=== PATIENT | female | born 1955 | race Caucasian/White ===

== ENCOUNTER 2020-09-16 01:24 | Outpatient (CLI) | payer MEDICARE, BC, SELFPAY ==
--- NOTE | 2020-09-16 13:26 | DI.MAMMO_ITS ---
EXAM: MG MAMMO SCREENING CLINICAL HISTORY: screening,Z12.39 TECHNIQUE: Bilateral full field digital CC and MLO mammographic images were obtained with 3D tomosyn thesis and utilizing computer aided detection (CAD). COMPARISON: Available for comparison. FINDINGS: Masses/Architectural Distortion: There multiple bilateral well-circumscribed nodules in the breasts. No suspicious masses or areas of architectural distortion. Microcalcifications: No suspicious pleomorphic-type are seen. Skin Thickening/Nipple Retraction: None. IMPRESSION: 1. No significant interval change with no specific features of malignancy noted. 2. Unless there is more urgent need, screening mammography is recommended, as per [employer] guidelines. BI-RADS Category 2 - Benign Findings Breast Density - Category C - Heterogeneously dense Breast density category C or D implies that the patient has dense breast tissue. Dense breast tissue is very common and is not abnormal but dense breast tissue can make it harder to find cancer on a ma mmogram. Also, dense breast tissue may increase their breast cancer risk. This information about the result of the mammogram report was provided to the patient to raise their awareness. Use this report when you speak with the patient about their risks for breast cancer, which includes their family hist ory. At that time, you may recommend for more screening tests (Ultrasound or MRI) as they might be us eful based on their risk. A negative radiographic report should not delay biopsy if a dominant or clinically suspicious mass is present. Up to ten percent of cancers are not identified on mammography. A negative report may reinforce clinical impression. Adenosis and dense breasts may obscure an underlying neoplasm. False positive reports average 6 to 10%. Patient will receive a letter notifying them of these results.
== END 2020-09-16 01:44 ==
PROVIDERS: PCP Nurse Practitioner Adult Health; Visit Provider Nurse Practitioner Adult Health
DX: Z12.31 Encounter for screening mammogram for malignant neoplasm of breast (principal)
CPT/HCPCS: 77063; 77067

== ENCOUNTER 2022-05-16 10:20 | Outpatient (REF) | payer MEDICARE, BC, SELFPAY ==
--- OUTSIDE RECORDS SUMMARY | 2022-05-16 11:09 | XMS_ITS | Encounter Summary ---
:1955 Author Organization [facility] Address [address] [place] [address] Care Team Providers Name Role Phone Swathi Abraham MD Primary Care Provider Encounter Details Date Type Department Care Team Description 04/10/2009 Orders Only [facility] Jones Grewal MD Laboratory Services - [address] [place] [address] [address] [facility] [place] [address] [phone] Social History Tobacco Use Types Packs/Day Years Used Date Never Assessed Sex Assigned at Date Recorded Not on file documented as of this encounter Plan of Treatment Not on filedocumented as of this encounter Procedures Procedure Name Priority Date/Time Associated Diagnosis Comme [facility] SURGICAL PATHOLOGY Routine 04/10/2009 0:00 EDT Re sults for this procedure are i n the results section. documented in this encounter Results SURGICAL PATHOLOGY (04/10/2009 0:00 EDT) Pathologist [facility] SURGICAL PATHOLOGY REPORT ? [facility] Report: Reports generated via electr Taamkru interface contain original data; ? LAB however they are lacking the format of the original report. ? Caution should be taken when reading/interpreting unformatted reports. ? Name: ? REALI, REBECA ? Accession #: ? [id number] ? : ? 1955 (Age: 53) ??F ? Collec t Date: ? 04/10/2009 ? Location: ? [facility] ? R eceive Date: ? 04/11/2009 ? Provider: JONES D ROSALEE MD ? Copy to: SHANON L SHAH N P ? Final Pathologic Diagnosis: ? A. ?Endocervix, polypectomy: ? 1. ?High grade squamous intraepithelial lesion (MERI II) arising in an ?? endocervical polyp. ? See comment. ? B. ?Endocervix, curettage: ? 1. ?Strips of s quamous and endocervical mucosa with reactive changes and chronic cervicitis. ? 2. ? No dysplasia identi fied. ? Comment: ? Sections of (A) show an endocervical polyp with foci of moderate squamous ?? dysplasia. ??Immunostaining of (A) for p16 (E6H4TM, [facility]) shows ? full-thickness staining in t he dysplastic areas, which is accompanying by an ? increase in MIB-1(Ki-67) (Ra bbit Monoclonal (SP6), [facility]) activity. ? Positive and negative contro ls stain appropriately. ??Arts And Crafts Teacher sections of this case have been reviewed at intradepartmental consultation conference. ??(Dr. Ingram) ? NOTE: ??One or more of the reagents used in immunohistochemical testing in this case may not have been cleared or approved by the U.S. Food and Drug ? Administration (FDA). ??The FDA has determined that such clearance or approval is not necessary. ??These tests are used for clinical purposes. ??They should not be regarded as investigational or for research. ??These reagents' ??performance ? characteristics have been de termined by [facility]. ??This ? laboratory is certified unde r the Clinical Laboratory Improvement Amendments of 1988 (CLIA-88) as qualified to perform high complexity clinical laboratory ? testing. ? Document reviewed and electr onically signed by: ? WATSON INGRAM MD ? Report ??Date: 04/17/2009 14 :39 ? By the signature above, the attending physician certifies that he/she has ? personally conducted a gross and/or microscopic examination of the described ? specimens and rendered or co nfirmed the above diagnosis. ? Specimen(s) Received: ? A. ?Endocervica l polyp ? B. ? Endocervical curett ings ? Clinical History: ? ASCUS, positive HPV 7 /16/09 ? Gross Description: ? Received in formalin labelled Rebeca Bogsg and #1 endocx polyp is a ?? turner polypoid piece of tissue which measures 1.2 x 0.8 x 0.4 cm as well as a 1.5 x 1.0 x 0.2 cm aggregate of mucinous material. ??The polyp is bisected and the ?? specimen is submitted entire ly as (A). ? Received in formalin christ d Rebeca Boggs and #2 endocx is a 0.75 cc ? aggregate of hemorrhagic muc inous material. ??The specimen is submitted entirely as (B). ??(Car Ordoñez)/aditi ? End of Report ? Specimen Performing Organization Address City/State/ZIP Code Phon e Number [facility] [address] [place] [address] SERVICES [facility] [address] [place] [address] documented in this encounter Visit Diagnoses Not on filedocumented in this encounter Care Teams Legal Referee Relationship Specialty Start Date End Date Swathi Abraham MD PCP - General 03/21/09 05/14/[address] [place] [phone] (work) documented as of this encounter
--- OUTSIDE RECORDS SUMMARY | 2022-05-16 11:09 | XMS_ITS | Encounter Summary ---
:[address] [facility] Address [address] [place] [address] Care Team Providers Name Role Phone Swathi Abraham MD Primary Care Provider Encounter Details Date Type Department Care Team Description 03/09/2002 Results Only [facility] Vitale, Chr istopher, conversion DO [address] [facility] [address] [facility] AHMET RILEY [address] [place] [address] [place] [address] (Wo rk) Social History Tobacco Use Types Packs/Day Years Used Date Never Assessed Sex Assigned at Date Recorded Not on file documented as of this encounter Plan of Treatment Not on filedocumented as of this encounter Procedures Procedure Name Priority Date/Time Associated Diagnosis Comme nts SURGICAL PATHOLOGY Routine 03/09/2002 0:00 EDT Re sults for this procedure are i n the results section. documented in this encounter Results SURGICAL PATHOLOGY (03/09/2002 0:00 EDT) Pathology Report: SURGICAL PATHOLOGY REPORT [facility] Reports generated via electronic interface contain pablo ginal data; LAB however they are lacking the format of the original re port. Caution should be taken when reading/interpreting unfo rmatted reports. Name: ? REBECA HARKINS ? Accession #: ? [id number] ? : ? 1955 (Age: 46) ??F ? Collect Date: ? 03/09/2002 ? Location: ? [facility] ? Receive Date: ? 002 ? Provider: HEIDI VITALE DO Copy to: KARIE SHAH FIRE PROTECTION EQUIPMENT TECHNICIAN ? Final Pathologic Diagnosis: ? Colon, 30.0 cm, polyp, polypectomy: - ??Fragments of tubular adenoma. Document reviewed and electronically signed by: Juwan Strauss MD Report ??Date: 03/14/2002 17:00 By the signature above, the attending physician certif ies that he/she has personally conducted a gross and/or microscopic examin ation of the described specimens and rendered or confirmed the above diagnosi s. Specimen(s) Received: ? Polyp 30 cm Clinical History: ? Rectal bleeding Gross Description: ? Received in Hollande' s fixative labelled Reali and polyp 30 cm are three polypoid pieces of sof t turner tissue which vary in size from 0.3 x 0.2 x 0.1 cm to 0.5 x 0.3 x 0.3 cm. ??The specimen is subm itted intact in one cassette. (Car Nur)/aditi End of Report Specimen Performing Organization Address City/State/ZIP Code Phon e Number [facility] [address] [place] [address] SERVICES [facility] [address] [place] [address] documented in this encounter Visit Diagnoses Not on filedocumented in this encounter Care Teams Beam Dyer Operator Relationship Specialty Start Date End Date Swathi Abraham MD PCP - General 03/21/09 05/14/[address] [place] [phone] documented as of this encounter
--- OUTSIDE RECORDS SUMMARY | 2022-05-16 11:09 | XMS_ITS | Encounter Summary ---
:1955 Author Organization [facility] Address [address] [place] [address] Care Team Providers Name Role Phone Estephania Merino MATERIAL STRESS TESTER Primary Care Provider Encounter Details Date Type Department Care Team Description 08/31/2017 Hospital Encounter [facility]- Susana Unknown, Provider, [facility] [address] [facility] [phone] [place] [address] (Work) [phone] Social History Tobacco Use Types Packs/Day Years Used Date Never Assessed Sex Assigned at Date Recorded Not on file documented as of this encounter Discharge Disposition Disposition Code Departure Means Destination Home or Self Alf documented in this encounter Plan of Treatment Not on filedocumented as of this encounter Visit Diagnoses Not on filedocumented in this encounter Care Teams Design Engineering Intern Relationship Specialty Start Date End Date Estephania Merino, MATERIAL STRESS TESTER PCP - General 05/15/[address] [place] [phone] documented as of this encounter
--- OUTSIDE RECORDS SUMMARY | 2022-05-16 11:09 | XMS_ITS | Encounter Summary ---
:1955 Author Organization [facility] Address [address] [place] [address] Care Team Providers Name Role Phone Estephania Merino BUSINESS CONSULTANT Primary Care Provider Encounter Details Date Type Department Care Team Description 08/31/2017 Results Only [facility] Deyvi Vitale, DO [address] [facility] AHMET [address] [place] [address] (Wo rk) Social History Tobacco Use Types Packs/Day Years Used Date Never Assessed Sex Assigned at Date Recorded Not on file documented as of this encounter Plan of Treatment Not on filedocumented as of this encounter Procedures Procedure Name Priority Date/Time Associated Diagnosis Comme [facility] SURGICAL PATHOLOGY Routine 08/31/2017 17:37 Resul ts for this EST procedure are i n the results section. documented in this encounter Results SURGICAL PATHOLOGY (08/31/2017 17:37 EST) Pathology Report: SURGICAL PATHOLOGY REPORT [facility] Reports generated via electronic interface contain pablo ginal data; LABORATORY however they are lacking the format of the original re port. SERVICES Caution should be taken when reading/interpreting unfo rmatted reports. Name: ? MAGDALENA RENNER ? Accession #: ? [id number] ? : ? 1955 (Age: [age]) ??F ? Collect Date: ? 08/31/2017 ? Location: ? [facility] ? Receive Date: ? 8 ? Provider: DEYVI VITALE DO Copy to: NATHALY RODRIGUEZ EARLY INTERVENTION SCHOOL PSYCHOLOGIST ? Final Pathologic Diagnosis: A. COLON, SIGMOID, POLYP, BIOPSY: - ??Fragment of hyperplastic polyp. B. RECTUM, POLYP, BIOPSY: - ??Fragment of hyperplastic polyp with lymphoid aggre gate. Document reviewed and electronically signed by: PACHECO BERNABE MD Report ??Date: 09/01/2017 17:00 By the signature above, the attending physician certif ies that he/she has personally conducted a gross and/or microscopic examin ation of the described specimens and rendered or confirmed the above diagnosi s. Specimen(s) Received: A. ??Sigmoid polyp B. ??Rectal polyp Clinical History: Hx of colon polyps Gross Description: A. ?Received in formalin labelled with proper p atient identification (initials W, S) and sigmoid colon polyp is a single white tissue fragment (0.8 x 0.2 x 0.1 cm). Submitted intact in block A1. B. ?Received in formalin labelled with proper p atient identification (initials W, S) and rectal polyp is a single pink-turner tissue fragment (0.4 x 0.3 x 0.1 cm). Submitted intact in block B1. JESS Coyle (ASCP) 09/01/2017 8:07 AM End of Report Specimen Performing Organization Address City/State/ZIP Code Phon e Number [facility] [address] [place] [address] SERVICES documented in this encounter Visit Diagnoses Not on filedocumented in this encounter Care Teams Switchboard Receptionist Relationship Specialty Start Date End Date Estephania Merino NP PCP - General 05/15/[address] [facility] [address] [place] [phone] documented as of this encounter
--- OUTSIDE RECORDS SUMMARY | 2022-05-16 11:09 | XMS_ITS | Encounter Summary ---
:1955 Author Organization [facility] Address [address] [place] [address] Care Team Providers Name Role Phone Swathi Abraham MD Primary Care Provider Encounter Details Date Type Department Care Team Description 08/19/2009 Orders Only [facility] Kellie Roque MD Laboratory Services - [address] [place] [address] [address] [place] [address] [phone] Social History Tobacco Use Types Packs/Day Years Used Date Never Assessed Sex Assigned at Date Recorded Not on file documented as of this encounter Plan of Treatment Not on filedocumented as of this encounter Procedures Procedure Name Priority Date/Time Associated Diagnosis Comme nts CYTOPATHOLOGY Routine 08/19/2009 0:00 EST Results for this procedure are i n the results section . documented in this encounter Results CYTOPATHOLOGY (08/19/2009 0:00 EST) Pathology Report: CYTOPATHOLOGY REPORT ? [facility] ? LAB Reports generated via electr onic interface contain original data; ? however they are lacking the format of the original report. ? Caution should be taken when reading/interpreting unformatted reports. ? Name: ? REBECA HARKINS ? Accession #: ? [id number] ? : ? 1955 (Age: 54) ??F ?Collect Date: ? 08/19/2009 ? Location: ? [facility] ? Receive Date: ? 08/21/2009 ? Provider: ?KELLIE P NEMO TER MD ? Copy to: ?SHANON L RO BINSON WATER ATTENDANT ? Specimen/Source: ? Pap Test, Vagina/Cervix/Endocervix, ThinPrep Imaging ? System with manual evaluatio n ? Last Menstrual Period: ? 2 Years ? Previous Gynecologic Patholo gy: ? ASC-US: With BV (Elsewhere) ? HSIL: 8/09 arising from an e ndocx polyp ? HPV: 7/09 ? Treatment History: ? Colposcopy: 9/09 Negative ? Colposcopy: 9/09 sq. metapla adwoa ? Other: ? 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 SPECIMEN ADEQUACY ? Satisfactory for Eval uation ? - transformation zone compon ent present ? GENERAL CATEGORIZATION ? Negative for Intraepi thelial Lesion or Malignancy ? Document reviewed and electr onically signed by: ? Zelda Samuels, CT( CP)(IAC) ? Report Date: ??12/29/ 2009 14:07 ? End of Report ? Specimen Performing Organization Address City/State/ZIP Code Phon e Number [facility] [address] [place] [address] SERVICES [facility] [address] [place] [address] documented in this encounter Visit Diagnoses Not on filedocumented in this encounter Care Teams Collision Technician Relationship Specialty Start Date End Date Swathi Abraham MD PCP - General 03/21/09 05/14/[address] [place] [phone] documented as of this encounter
--- OUTSIDE RECORDS SUMMARY | 2022-05-16 11:09 | XMS_ITS | Encounter Summary ---
:1955 Author Organization [facility] Address [address] [place] [address] Care Team Providers Name Role Phone Unavailable Primary Care Provider Unavailable Encounter Details Date Type Department Care Team Description 03/14/2009 Orders Only [facility] Yanna Merino, BECKY Laboratory Services - [address] [address] [place] [address] [phone] Social History Tobacco Use Types Packs/Day Years Used Date Never Assessed Sex Assigned at Date Recorded Not on file documented as of this encounter Plan of Treatment Not on filedocumented as of this encounter Procedures Procedure Name Priority Date/Time Associated Comments Diagnosis HPV DETECTION, HIGH Routine 03/14/2009 10:16 Resu lts for this RISK TYPES EDT procedure are i n the results section. CYTOPATHOLOGY Routine 03/14/2009 0:00 Results for this EDT procedure are i n the results section. documented in this encounter Results HUMAN PAPILLOMA VIRUS DNA TEST (03/14/2009 10:16 EDT) Specimen Description Cervix, ThinPrep [facility] vial LAB Result Positive for one or more of HPV types 16,18,31,33,35,39,45,51,52,56,58,59, or 68. These [facility] Camille CLAYTONEN high/intermediate risk HPV t ypes are associated with dysplasia and some cervical cancers. LAB Report Status Final [facility] 03/27/2009 LAB Specimen Performing Organization Address City/State/ZIP Code Phon e Number [facility] [address] [place] [address] SERVICES [facility] [address] [place] [address] CYTOPATHOLOGY (03/14/2009 0:00 EDT) Pathology Report: CYTOPATHOLOGY REPORT ? [facility] ? LAB Reports generated via Nistica interface contain original data; ? however they are lacking the format of the original report. ? Caution should be taken when reading/interpreting unformatted reports. ? Name: ? REBECA HARKINS ? Accession #: ? [id number] ? : ? 1955 (Age: 53) ??F ?Collect Date: ? 03/14/2009 ? Location: ? [facility] ? Receive Date: ? 03/15/2009 ? Provider: ?SHANON L R OBINSON LICENSED FUNERAL DIRECTOR AND EMBALMER ? Copy to: ? Specimen/Source: ? Pap Test, Cervix/Endocervix, ThinPrep Imaging System ? with manual evaluation ? Last Menstrual Period: ? 02/01/07 ? Other: ? Additional clinical informat ion: Cervical polyp ? HPVA - HPV testing requested if ASC-US on the current ThinPrep Pap test. ? SPECIMEN ADEQUACY ? Satisfactory for Eval uation ? - transformation zone compon ent present ? GENERAL CATEGORIZATION ? Epithelial Cell Abnor mality ? INTERPRETATION ? Squamous Cell Abnorma lity - Atypical squamous cells, undetermined ? significance (ASC-US). ? Shift in oj present sugge stive of bacterial vaginosis. ? EDUCATIONAL NOTES/RECOMMENDA TIONS ? [facility] recommends follo wing the 2005 Consensus Guidelines for the Management of Women with Abnormal Cervi malick Cancer Screening Tests (JLGTD, ? 2007;11(4):201-222). ??Conse nsus guidelines are available online at ? www.ASCCP.org. ? Document reviewed and electr onically signed by: ? KOBY GOMEZ MD MBB CH ? Report Date: ??07/22/ 2009 18:21 ? End of Report ? Specimen Performing Organization Address City/State/ZIP Code Phon e Number [facility] [address] [place] [address] SERVICES [facility] [address] [place] [address] documented in this encounter Visit Diagnoses Not on filedocumented in this encounter
--- OUTSIDE RECORDS SUMMARY | 2022-05-16 11:09 | XMS_ITS | Encounter Summary ---
:1955 Author Organization [facility] Address [address] [place] [address] Care Team Providers Name Role Phone Swathi Abraham MD Primary Care Provider Encounter Details Date Type Department Care Team Description 05/09/2010 Results Only [facility] Yanna Shah, MALARIOLOGIST Laboratory Services - [address] [place] [address] [place] [address] [place] [address] [phone] Social History Tobacco Use Types Packs/Day Years Used Date Never Assessed Sex Assigned at Date Recorded Not on file documented as of this encounter Plan of Treatment Not on filedocumented as of this encounter Procedures Procedure Name Priority Date/Time Associated Diagnosis Comme nts CYTOPATHOLOGY Routine 05/09/2010 0:00 EDT Results for this procedure are i n the results section . documented in this encounter Results CYTOPATHOLOGY (05/09/2010 0:00 EDT) Pathology Report: CYTOPATHOLOGY REPORT ? [facility] ? LAB Reports generated via electr onic interface contain original data; ? however they are lacking the format of the original report. ? Caution should be taken when reading/interpreting unformatted reports. ? Name: ? REBECA HARKINS ? Accession #: ? [id number] ? : ? 1955 (Age: 55) ??F ?Collect Date: ? 05/09/2010 ? Location: ? [facility] ? R eceive Date: ? 05/12/2010 ? Provider: SHANON L SHAH MALARIOLOGIST ? Copy to: ? Final Report ? SPECIMEN ADEQUACY ? Satisfactory for Eval uation ? - transformation zone compon ent present ? GENERAL CATEGORIZATION ? Negative for Intraepi thelial Lesion or Malignancy ? INTERPRETATION ? Reactive cellular juan nges associated with inflammation present (includes ?? repair). ? Last Menstural Period: 2008 ? Previous Gynecologic Patholo gy: ASC-US: H/O ? Other: HPVDX - HPV testing r equested regardless of diagnosis on current ThinPrep Pap test. ? Specimen/Source: ??Pap Test, Cervix, ThinPrep Imaging System with manual ? evaluation ? Document reviewed and electr onically signed by: ? GUMARO L CIOLINO MD ? Report ??Date: 09/16/ 2010 07:54 ? HPV with Pap Test ? Date Ordered: ? 0 05/14/2010 ? Status: ?? Signed Out ?Date Complete: ? 05/16/2010 ? By: ??User Misys ? Date Reported: ? 05/16/2010 ? Interpretation ? RESULT: Negative for HPV typ es 16, 18, 31, 33, 35, 39, 45, 51, ??with ? dysplasia and some cervical cancers. ? Comments ? Document reviewed and electr onically signed by: ? User Misys ? Report date: 05/16/20 ? By the signature above, the attending physician certifies that he/she has ? personally conducted a gross and/or microscopic examination of the described ? specimens and rendered or co nfirmed the above diagnosis. ? End of Report ? Specimen Performing Organization Address City/State/[facility] Code Phon e Number [facility] [address] [place] [address] SERVICES [facility] [address] [place] [address] documented in this encounter Visit Diagnoses Not on filedocumented in this encounter Care Teams Child Protective Services Social Worker Relationship Specialty Start Date End Date Swathi Abraham MD PCP - General 03/21/09 05/14/[address] [place] [phone] documented as of this encounter
--- OUTSIDE RECORDS SUMMARY | 2022-05-16 11:09 | XMS_ITS | Encounter Summary ---
:1955 Author Organization [facility] Address [address] [place] [address] Care Team Providers Name Role Phone Estephania Shah DECK CADET Primary Care Provider Encounter Details Date Type Department Care Team Description 11/13/2014 Results Only [facility] Yanna Shah, DECK CADET Laboratory Services - [address] [place], [place] [address] [place] [phone] [place] [address] [phone] Social History Tobacco Use Types Packs/Day Years Used Date Never Assessed Sex Assigned at Date Recorded Not on file documented as of this encounter Plan of Treatment Not on filedocumented as of this encounter Procedures Procedure Name Priority Date/Time Associated Diagnosis Comme nts PAP TEST- RESULT Routine 11/13/2014 0:00 EDT Resu lts for this ONLY procedure are i n the results section. documented in this encounter Results PAP TEST- RESULT ONLY (11/13/2014 0:00 EDT) Pathology Report: CYTOPATHOLOGY REPORT [facility] Reports generated via electronic interface contain pablo ginal data; SERVICES however they are lacking the format of the original re port. Caution should be taken when reading/interpreting unfo rmatted reports. Name: ? REBECA HARKINS ? Accession #: ? [id number] ? : ? 1955 (Age: 59) ??F ?Collect Da te: ? 11/13/2014 ? Location: ? [facility] ? Receive Date: ? 015 ? Provider: ESTEPHANIA SHAH DECK CADET Copy to: ? Final Report SPECIMEN ADEQUACY ? Satisfactory for Evaluation - transformation zone component present GENERAL CATEGORIZATION ? Negative for Intraepithelial Lesion or Malignan cy ?? Last Menstrual Period: 2007 Specimen/Source: ??Pap Test, Endocervix, ThinPrep Imag ing System with manual evaluation Document reviewed and electronically signed by: ? NEELA Salas(ASCP) ? Report ??Date: 11/19/2014 12:54 HPV with Pap Test ? Date Ordered: ? 11/19/2014 ? Status: ?? Signed Out ?Date Complete: ? 11/21/2014 ? By: ??S ystem Interface ? Date Reported: ? 11/21/2014 ? Interpretation RESULT: Negative for HPV. No E6 or E7 mRNA is detected from HPV types 16,18,31,3 3,35, 39,45,51,52,56,58,59,66, and 68 by building cleaning supervisor media stephie amplification. Comments Document reviewed and electronically signed by: ? System Interface ? Report date: 11/21/2014 By the signature above, the attending physician certif ies that he/she has personally conducted a gross and/or microscopic examin ation of the described specimens and rendered or confirmed the above diagnosi s. End of Report Specimen Performing Organization Address City/State/ZIP Code Phon e Number [facility] [address] [place] [phone] SERVICES documented in this encounter Visit Diagnoses Not on filedocumented in this encounter Care Teams Single Stayer Operator Relationship Specialty Start Date End Date Estephania Shah, DECK CADET PCP - General 05/15/[address] [place] [phone] documented as of this encounter
--- OUTSIDE RECORDS SUMMARY | 2022-05-16 11:09 | XMS_ITS | Encounter Summary ---
:1955 Author Organization [facility] Address [address] [place] [address] Care Team Providers Name Role Phone Swathi Abraham MD Primary Care Provider Encounter Details Date Type Department Care Team Description 01/03/2004 Results Only [facility] Martin son, Estephania Dewitt, CINDER BLOCK MAKER conversion [address] [place] [phone] (Wo rk) Social History Tobacco Use Types Packs/Day Years Used Date Never Assessed Sex Assigned at Date Recorded Not on file documented as of this encounter Plan of Treatment Not on filedocumented as of this encounter Procedures Procedure Name Priority Date/Time Associated Diagnosis Comme nts CYTOPATHOLOGY Routine 01/03/2004 0:00 EDT Results for this procedure are i n the results section . documented in this encounter Results CYTOPATHOLOGY (01/03/2004 0:00 EDT) Pathology Report: CYTOPATHOLOGY REPORT [facility] Reports generated via electronic interface contain pablo ginal data; however they are lacking the format of the original re port. Caution should be taken when reading/interpreting unfo rmatted reports. Name: ? REBECA HARKINS ? Accession #: ? [id number] : ? 1955 (Age: 48) ??F ?Collect Date: ? 05/0 01/2004 Location: ? [facility] ? Receive Date : ? 01/08/2004 Provider: ?ESTEPHANIA SHAH CINDER BLOCK MAKER Copy to: ? Specimen/Source: ?ThinPrep Pap Test, Cervix/ Endocervix Last Menstrual Period: ? Approx. 1.5 mo ago Other: ? Additional clinical information: Cervical polyp ? SPECIMEN ADEQUACY ? Satisfactory for Evaluation - transformation zone component present GENERAL CATEGORIZATION ? Negative for Intraepithelial Lesion or Malignan cy ? Document reviewed and electronically signed by: ? NEELA Fraser(ASCP) ? Report Date: ??01/11/2004 13:36 End of Report Specimen Performing Organization Address City/State/ZIP Code Phon e Number [facility] [address] [place] [address] SERVICES [facility] [address] [place] [address] documented in this encounter Visit Diagnoses Not on filedocumented in this encounter Care Teams Treasury Analyst Relationship Specialty Start Date End Date Swathi Abraham MD PCP - General 03/21/09 05/14/[address] [place] [phone] documented as of this encounter
--- OUTSIDE RECORDS SUMMARY | 2022-05-16 11:09 | XMS_ITS | Encounter Summary ---
:1955 Author Organization [facility] Address [address] [place] [address] Care Team Providers Name Role Phone Estephania Merino WHIZZER Primary Care Provider Encounter Details Date Type Department Care Team Description 07/15/2012 Results Only [facility] Deyvi Vitale , Laboratory Services - [address] [place] [address] [place] [address] [phone] Social History Tobacco Use Types Packs/Day Years Used Date Never Assessed Sex Assigned at Date Recorded Not on file documented as of this encounter Plan of Treatment Not on filedocumented as of this encounter Procedures Procedure Name Priority Date/Time Associated Diagnosis Comme [facility] SURGICAL PATHOLOGY Routine 07/15/2012 0:00 EST Re sults for this procedure are i n the results section. documented in this encounter Results SURGICAL PATHOLOGY (07/15/2012 0:00 EST) Pathology Report: SURGICAL PATHOLOGY REPORT [facility] Reports generated via electronic interface contain pablo ginal data; LAB however they are lacking the format of the original re port. Caution should be taken when reading/interpreting unfo rmatted reports. Name: ? REBECA HARKINS ? Accession #: ? [id number] ? : ? 1955 (Age: 57) ??F ? Collect Date: ? 07/15/2012 ? Location: ? [facility] ? Receive Date: ? 012 ? Provider: DEYVI VITALE DO Copy to: NATHALY RODRIGUEZ INORGANIC CHEMISTRY TEACHER ? Final Pathologic Diagnosis: ? Colon, 30 cm, polyp, biopsies: - Tubular adenoma (three pieces); no high grade dyspla adwoa. Document reviewed and electronically signed by: Nicanor Martin MD Report ??Date: 07/19/2012 17:20 By the signature above, the attending physician certif ies that he/she has personally conducted a gross and/or microscopic examin ation of the described specimens and rendered or confirmed the above diagnosi s. Specimen(s) Received: ? Polyp 30 cm Clinical History: ? FHx of colon polyps Gross Description: ? Received in formalin labelled Ambrose, Yadira ryl and #1-polyp 30 cm are three turner-pink soft tissue fragments ranging fro m 0.1 x 0.1 x 0.1 cm to 0.5 x 0.3 x 0.2 cm. ??The specimen is entirely submitted in one cassette. ??(Dr. Frias)/[facility] End of Report Specimen Performing Organization Address City/State/ZIP Code Phon e Number [facility] [address] [place] [address] SERVICES [facility] [address] [place] [address] documented in this encounter Visit Diagnoses Not on filedocumented in this encounter Care Teams Certified Solid Waste Facility Operator Relationship Specialty Start Date End Date Estephania Merino NP PCP - General 05/15/[address] [place] [phone] documented as of this encounter
--- OUTSIDE RECORDS SUMMARY | 2022-05-16 11:09 | XMS_ITS | Encounter Summary ---
:1955 Author Organization [facility] Address [address] [place] [address] Care Team Providers Name Role Phone Swathi Abraham MD Primary Care Provider Estephania Shah NP Primary Care Provider Encounter Details Date Type Department Care Team Description 05/13/2005 Results Only [facility] - Estephania Messer, HOSPITAL MANAGER conversion [address] [place] [phone] (Wo rk) Social History Tobacco Use Types Packs/Day Years Used Date Never Assessed Sex Assigned at Date Recorded Not on file documented as of this encounter Plan of Treatment Not on filedocumented as of this encounter Procedures Procedure Name Priority Date/Time Associated Diagnosis Comme nts CYTOPATHOLOGY Routine 05/13/2005 0:00 EDT Results for this procedure are i n the results section . documented in this encounter Results CYTOPATHOLOGY (05/13/2005 0:00 EDT) Pathology Report: CYTOPATHOLOGY REPORT [facility] Reports generated via electronic interface contain pablo ginal data; however they are lacking the format of the original re port. Caution should be taken when reading/interpreting unfo rmatted reports. Name: ? REBECA HARKINS ? Accession #: ? [id number] : ? 1955 (Age: 50) ??F ?Collect Date: ? 04/30 Location: ? [facility] ? Receive Date : ? 05/15/2005 Provider: ?ESTEPHANIA SHAH NP Copy to: ? Specimen/Source: ? ThinPrep Pap Test, Cervix/Endocervix, processed on [employer] ThinPrep Imaging System, with manual evaluation Last Menstrual Period: ? 05/11/05 ? SPECIMEN ADEQUACY ? Satisfactory for Evaluation - transformation zone component present GENERAL CATEGORIZATION ? Negative for Intraepithelial Lesion or Malignan cy ? Document reviewed and electronically signed by: ? NEELA Cary(ASCP) ? Report Date: ??05/22/2005 09:28 End of Report Specimen Performing Organization Address City/State/ZIP Code Phon e Number [facility] [address] [place] [address] SERVICES [facility] [address] [place] [address] documented in this encounter Visit Diagnoses Not on filedocumented in this encounter Care Teams Chemist Organic Relationship Specialty Start Date End Date Sawthi Abraham MD PCP - General 03/21/09 05/14/10 [address] [facility] [address] [place] [phone] Estephania Shah NP PCP - General 05/15/[address] [place] [phone] documented as of this encounter
--- OUTSIDE RECORDS SUMMARY | 2022-05-16 11:10 | XMS_ITS | Encounter Summary ---
:1955 [place] [address] Care Team Providers Name Role Phone Darlin Sorensen APRN Primary Care Provider Encounter Details Date Type Department Care Team Description 12/02/2021 Interpretation Only [facility] JimenezAugustinath, [address] VP CARE MANAGEMENT [place], [place] [address] [facility] [phone] [place], [place] [address] (Wo rk) Social History Tobacco Use Types Packs/Day Years Used Date Never Assessed Sex Assigned at Date Recorded Not on file documented as of this encounter Plan of Treatment Not on filedocumented as of this encounter Procedures Procedure Name Priority Date/Time Associated Diagnosis Comme nts MAMMO SCREENING CAD Routine 12/02/2021 8:19 AM Re sults for this AND LINO BILATERAL EDT procedure are in the results section. documented in this encounter Results Mammo Screening Cad and Lino Bilateral (12/02/2021 8:19 AM EDT) [facility] gist Method Time Signature PT CLASS O DH RAD ADMITDTTM DH RAD PT DH RAD MD INFO [phone]^JIMENEZ DH RAD ^PRUDENCE EXAM DESC MADDSCTO^BREAST DH RAD SCREEN TOMOSYNTHESIS BI^RIS Anatomical Region Laterality Modality Breast Bilateral Mammography Specimen (Source) Anatomical Location Collection Method / Collectio n Time Received Time / Laterality Volume Impressions 12/02/2021 3:52 PM EDT BI-RADS category 2: benign findings- No mammographic evidence of malignancy. RECOMMENDATION: * ??Regular screening mammograms startin g between age 40 and 50 reduces the risk of from breast cancer. * ??All screening tests have both risks and benefits. These risks and benefits should be assessed for each individual p atient through discussion with their provider to determine their preferred br east cancer screening schedule. * ??Women should report any breast floyd es to a health care provider right away. * ??Some women, because of their family history, a genetic tendency, or other factors, should be screened with annual breast MRI as well as with mammograms. (The number of women who fall into this category is very small). Patients and health care providers should discuss the history of each patient to decide if earlier screening and/or breast MRI are appropriate. * ??Screening should continue as long as a woman is in good health and is expected to live 10 years or longer. * ??Screening mammography may not detect 10-15% of breast cancers. Thank you for letting us participate in the care of this patient. ??If you are a health care provider and have any questi ons regarding this report, please contact the number below. ??For patients who have questions please contact the health care connector that requested your imaging first. ? Narrative 12/02/2021 3:52 PM EDT EXAMINATION: BREAST SCREEN TOMOSYNTHESIS BI, SCREEN MAMMO BL INCLUDES CAD CLINICAL HISTORY: Screening mammogram fo r malignant neoplasm of breast Family history of breast cancer: None Reproductive history: Parous No personal history of breast cancer. COMPARISON: Previous mammograms were rev iewed. TECHNIQUE: ??Bilateral MLO and CC digita l mammograms were obtained and reviewed with CAD. ?? 2-D and 3-D tomosynthesis i mages were obtained. FINDINGS: There are no suspicious microc alcifications, masses, or areas of distortion. Waxing and waning cysts are again seen. Breast density: The breasts are heteroge neously dense, which may obscure small masses. Procedure Note Cesar Crow MD - 12/02/2021For matting of this note might be different from the original. EXAMINATION: BREAST SCREEN TOMOSYNTHESIS BI, SCREEN MAMMO BL INCLUDES CAD CLINICAL HISTORY: Screening mammogram fo r malignant neoplasm of breast Family history of breast cancer: None Reproductive history: Parous No personal history of breast cancer. COMPARISON: Previous mammograms were rev iewed. TECHNIQUE: Bilateral MLO and CC digital mammograms were obtained and reviewed with CAD. 2-D and 3-D tomosynthesis imag es were obtained. FINDINGS: There are no suspicious microc alcifications, masses, or areas of distortion. Waxing and waning cysts are again seen. Breast density: The breasts are heteroge neously dense, which may obscure small masses. IMPRESSION BI-RADS category 2: benign findings- No mammographic evidence of malignancy. RECOMMENDATION: * Regular screening mammograms starting between age 40 and 50 reduces the risk of from breast cancer. * All screening tests have both risks an d benefits. These risks and benefits should be assessed for each individual p atient through discussion with their provider to determine their preferred br east cancer screening schedule. * Women should report any breast changes to a health care provider right away. * Some women, because of their family hi story, a genetic tendency, or other factors, should be screened with annual breast MRI as well as with mammograms. (The number of women who fall into this category is very small). Patients and health care providers should discuss the history of each patient to decide if earlier screening and/or breast MRI are appropriate. * Screening should continue as long as a woman is in good health and is expected to live 10 years or longer. * Screening mammography may not detect 1 0-15% of breast cancers. Thank you for letting us participate in the care of this patient. If you are a health care provider and have any questi ons regarding this report, please contact the number below. For patients w ho have questions please contact the health care connector that requested your imaging first. Prudence Jimenez APRN IMG MAMMO ORDERABLES documented in this encounter Visit Diagnoses Not on filedocumented in this encounter Care Teams Forestry Supervisor Relationship Specialty Start Date End Date Darlin Sorensen APRN PCP - General Geriatric Medicine 05/13/[address] [place] [address] documented as of this encounter
--- OUTSIDE RECORDS SUMMARY | 2022-05-16 11:10 | XMS_ITS | Encounter Summary ---
:1955 [place] [address] Care Team Providers Name Role Phone Darlin Sorensen APRN Primary Care Provider Encounter Details Date Type Department Care Team Description 12/02/2021 Interpretation Only [facility] JimenezPrudence, [address] [facility] SYNCHRONOUS MOTOR ASSEMBLER [place], [place] [address] [facility] [phone] [place], [place] [address] (Wo rk) Social History Tobacco Use Types Packs/Day Years Used Date Never Assessed Sex Assigned at Date Recorded Not on file documented as of this encounter Plan of Treatment Not on filedocumented as of this encounter Procedures Procedure Name Priority Date/Time Associated Diagnosis Comme nts MAMMO SCREENING CAD Routine 12/02/2021 8:19 AM Re sults for this BILATERAL EDT procedure are i n the results section. documented in this encounter Results Mammo Screening Cad Bilateral (12/02/2021 8:19 AM EDT) P athologist Signature PT CLASS O DH RAD ADMITDTTM DH RAD PT DH RAD MD INFO [id number]^NE DH RAD WTON^SATYA H EXAM DESC MADDSC^SCREEN DH RAD MAMMO BL INCLUDES CAD^RIS Anatomical Region Laterality Modality Breast Bilateral Mammography [...] with their provider to determine their preferred east cancer screening schedule. * ??Women should [...] who have questions please contact the health healthcare business analyst that requested your imaging first. ? Narrative [...] with their provider to determine their preferred east cancer screening schedule. * Women should [...] ho have questions please contact the health healthcare business analyst that requested your imaging first. Electronically signed by: Cesar ly MD, [facility] ([phone]), at 12/02/2021 3:52 PM Prudence Tony EDWARDS IMG MAMMO ORDERABLES documented in this encounter Visit Diagnoses Not on filedocumented in this encounter Care Teams Airplane Rigger Relationship Specialty Start Date End Date Darlin Sorensen APRN PCP - General Geriatric Medicine 05/13/[address] [place] [address] documented as of this encounter
--- OUTSIDE RECORDS SUMMARY | 2022-05-16 11:10 | XMS_ITS | Encounter Summary ---
:1955 Author Organization [facility] [place] [address] Care Team Providers Name Role Phone DebbyDarlin bar GRACE Primary Care Provider Reason for Visit Reason Comments Skin Lesion Consultation (Routine) - Specialty Diagnoses / Procedures Referred By Contact Refer red To Contact Dermatology Diagnoses Melanocytic nevi, unspecified Nevus Zoie Sutton APRN [facility] Dermatology Procedures Consult [address] [place] [id number] Referral ID Status Reason Start Date Expiration Date Visits V isits Requested Authorized [id number] Consult, Test 04/07/2018 04/07/2019 6 6 & Treat PCP Updated and/or Approved Encounter Details Date Type Department Care Team Description 05/13/2018 Office Visit Dermatology at [facility] eborrheic keratosis, Road inflamed [address] [place] [address] [facility] [place], [place] [address] Social History Tobacco Use Types Packs/Day Years Used Date Never Assessed Sex Assigned at Date Recorded Not on file documented as of this encounter Patient Instructions Patient InstructionsNoelle Kirby - 05/13/2018 2:30 PM EDT Treatment and Wound Care Instructions Your treatment today: You have had a shave biopsy of your skin, which is a removal of tissue for examination under a microscope. This wound will heal without stitches. Allow 3-6 weeks for the wound to heal. If bleeding occurs, hold firm pressure against the wound for 15 minutes. If bleeding continues, calls the office or go to your local emergency room. Please allow 1-2 weeks for the biopsy results to return. Your physician or nurse will contact you with the results by phone or letter; follow-up will be discussed at that time. Wound Care Instructions: You will need to keep the dressing placed over the wound dry and intact for 24 hours. Afterwards, perform the following wound care daily: ?? Wash your hands before changing the dressing. ?? Remove the bandage and clean the area with mild soap and water, then gently pat the area dry. ?? Apply a small amount of Vaseline to the area, then cover the wound with a band-aid. Change your dressing daily until the wound is fully healed. ?? A small amount of yellow drainage is part of normal healing. The area might appear as a small depression with redness around the edge of the wound. This is normal. ?? Please contact the office you you notice any of the following signs of infection: increased tenderness, pain, drainage, or redness that becomes hot or hard around the wound. If you have further questions or concerns, please call the office at [phone]. If it is after 5PM, or a holiday or weekend, please call [phone] and ask for the [employer] on-call. documented in this encounter Progress Notes Winifred Marquis MD - 05/13/2018 2:30 PM EDT DERMATOLOGY NEW PATIENT CLINIC NOTE DATE OF SERVICE: 05/13/2018 Rebeca LANDAVERDE : 1955 PROVIDER: Win[facility]red Marquis MD REFERRED BY: Zoie Sutton APRN For diagnosis and management of: Melanocytic nevi, unspecified PATIENT PREFERENCES: -prefers to be called: Rebeca -heriberto to communicate detailed result information by: Mail?: Y MyDH?: N Voicemail?: Y and what #: [phone] (H) Chief Complaint Patient presents with ??? Skin Lesion HPI Rebeca LANDAVERDE is a 63 y.o. year old female. New patient to me?yesTo DH Derm? yes Reports the following: - lesion located on left cheek present for many years. Change in size? A little Has any medication or intervention been tried? none Associated with: itch/bleeding/pain? Has pt had anything like thisbefore? Years ago she had similar lesion removed on her face and her side. 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 [DISCONTINUED] CALCIUM CARBONATE/VITAMIN D3 (CALCIUM 600 WITH VITAMIN D3 ORAL) (Patient not taking: No sig reported) ??? [DISCONTINUED] DIPHENHYDRAMINE HCL (BENADRYL ORAL) (Patient not taking: No sig reported) No current facility-administered medications on file prior to visit. No Known Allergies EXAM General: AAOx3 Well-nourished adult in no apparent distress Skin: A focal examination of the following areas was performed: face. DIAGNOSIS/SKIN FINDINGS/ASSESSMENT/PLAN: # Irritated Seborrheic keratosis - left cheek: waxy stuck on macule - Etiology reviewed - Combined decision was made to preform a curettage today Procedure: Destruction of lesion. Site: left cheek . Discussed indications and expectations including risks and benefits. Verbal consent obtained. Skin prep. Local anesthesia: buffered 1% lidocaine with epinephrine. The entire lesion plus a small margin was treated by curettage. No complications. Wound dressed. Expectations (including discomfort management) and wound care reviewed. FOLLOW UP: PRN I am documenting this encounter acting as the scribe for and in the presence of Dr.Roberta Benitez PARTIDA LPN and Noelle Kirby I performed the above scribed service and agree with the accuracy of the documentation in this encounter. Win[facility]red Marquis MD Section of Dermatology [facility] Rebeca Dewitt AKHIL 05/13/2018 [id number] documented in this encounter Plan of Treatment Not on filedocumented as of this encounter Visit Diagnoses Diagnosis Seborrheic keratosis, inflamed Inflamed seborrheic keratosis documented in this encounter Care Teams Litigation Services Manager Relationship Specialty Start Date End Date Darlin Sorensen APRN PCP - General Geriatric Medicine 05/13/[address] [place] [address] documented as of this encounter
--- OUTSIDE RECORDS SUMMARY | 2022-05-16 11:10 | XMS_ITS | Clinical Summary ---
:1955 Author Organization [place] [address] Care Team Providers Name Role Phone Darlin Sorensen APRN Primary Care Provider Allergies No known active allergies Medications No known medications Immunizations Name Administration Dates Next Due Influenza Vaccine w/Preservative, Split 07/07/2016 Social History Tobacco Use Types Packs/Day Years Used Date Never Assessed Sex Assigned at Date Recorded Not on file Plan of Treatment Health Maintenance Due Date Last Done Comments Covid-19 Vaccine (#1) 1959 Hepatitis C Screening 1972 Tdap adult 1973 Tetanus vaccine 1973 Breast Cancer Share Decision Needed 1994 Colonoscopy 1999 Zoster vaccine (1 of 2) 2004 Advance Directive 2009 Bone Density Scan 2019 Pneumoccocal Vaccine: 65+ (1 - PCV) 2019 Influenza (Flu) vaccine (1 of 1 - 04/30/2022 07/07/2016 Influenza standard series) Breast Cancer screening 12/03/2023 12/02/2021, 12/02/2021 Care Teams [employer] Pumping [employer] Supervisor Relationship Specialty Start Date End Date Darlin Sorensen APRN PCP - General Geriatric Medicine 05/13/[id number] [place], [place] [id number]
--- OUTSIDE RECORDS SUMMARY | 2022-05-16 11:10 | XMS_ITS | Encounter Summary ---
:1955 Author Organization [facility] Address [address] [place] [address] Care Team Providers Name Role Phone Swathi Abraham MD Primary Care Provider Encounter Details Date Type Department Care Team Description 09/20/2001 Results Only [facility] Martin son, Estephania Dewitt, CIVIL DIVISION COMMANDER DEPUTY SHERIFF conversion [address] [place] [phone] (Wo rk) Social History Tobacco Use Types Packs/Day Years Used Date Never Assessed Sex Assigned at Date Recorded Not on file documented as of this encounter Plan of Treatment Not on filedocumented as of this encounter Procedures Procedure Name Priority Date/Time Associated Diagnosis Comme nts CYTOPATHOLOGY Routine 09/20/2001 0:00 EST Results for this procedure are i n the results section . documented in this encounter Results CYTOPATHOLOGY (09/20/2001 0:00 EST) Pathology Report: CYTOPATHOLOGY REPORT [facility] Reports generated via electronic interface contain pablo ginal data; however they are lacking the format of the original re port. Caution should be taken when reading/interpreting unfo rmatted reports. Name: ? REBECA HARKINS ? Accession #: ? [id number] : ? 1955 (Age: 46) ??F ?Collect Date: ? 08/31 Location: ? [facility] ? Receive Date : ? 09/23/2001 Provider: ?ESTEPHANIA SHAH [employer]IVIL DIV[employer] COMMANDER DEPUTY SHERIFF Copy to: ? Specimen/Source: ?ThinPrep Pap Test, Cervix/ Endocervix Last Menstrual Period: ? 09/06/01 ? SPECIMEN ADEQUACY ? Satisfactory for Evaluation - transformation zone component present GENERAL CATEGORIZATION ? Negative for Intraepithelial Lesion or Malignan cy ? Document reviewed and electronically signed by: ? NEELA Lazaro(ASCP) ? Report Date: ??09/26/2001 11:49 End of Report Specimen Performing Organization Address City/State/[facility] Code Phon e Number [facility] [address] [place] [address] [facility] [address] [place] [address] documented in this encounter Visit Diagnoses Not on filedocumented in this encounter Care Teams Qa Consultant Relationship Specialty Start Date End Date Swathi Abraham MD PCP - General 03/21/09 05/14/[address] [phone] documented as of this encounter
[2022-05-16 18:43] LABS: Bacteria Few HPF (Negative); C & S Indicated? C&S Done As Ordered; Crystals Negative HPF (Negative); Epithelial Cells Moderate HPF (Negative); Mucus Negative (Negative); RBC 0-2 HPF (0-2); WBC >50 HPF (0-5)
== END 2022-05-16 10:21 | disposition home or self-care (01) ==
LOC: LBN 10:20
PROVIDERS: Visit Provider Nurse Practitioner Family
DX: N30.00 Acute cystitis without hematuria (principal)
CPT/HCPCS: 87077; 81015; 87086; 87186